=== PATIENT | female | born 1970 | race Caucasian/White ===

== ENCOUNTER 2018-03-22 20:41 | Emergency (ER) | payer MEDICARE, MEDICAID ==
[~2018-03-22] VITALS: Ht 170.2 cm; Wt 121.1 kg
[~2018-03-22 20:41] MED LIST: CARI350T PO; CETI10TA24 PO; COLE1TAB PO; DULO60CA7 PO; ESOM20CA PO; GABA800T5 PO; HYDR-3105 PO; PANT40TA3 PO; PROM25TA10 PO; TOPI100T8 PO
--- NOTE | 2018-03-22 21:10 | ER.PDOC ---
General Chief Complaint: Requesting Medical Care Stated Complaint: LOW BP TRAVEL OUT OF US: No Time seen by MD: 21:01 Source: patient Exam Limitations: no limitations History of Present Illness Initial Comments Pt with sensation of feeling unwell for the past two hours, pain in between scapular areas, weak, headache Timing/Duration: 1-3 hours Severity: moderate Associated Symptoms: headaches, malaise, weakness Allergies: Coded Allergies: Penicillins (Verified Allergy, Severe, unknown, 09/14/16) aspirin (Verified Allergy, Intermediate, 05/26/15) Home Meds Reported Medications Colestipol Hcl (COLESTID) 1 Gm Tablet, 1 GM PO DAILY, TABLET 05/19/15 Promethazine Hcl (PROMETHAZINE HCL) 25 Mg Tablet, 25 MG PO Q6HR PRN for nausea, TABLET 05/19/15 Carisoprodol (SOMA) 350 Mg Tablet, 1 TAB PO TID, #90 TAB 03/26/15 Esomeprazole Magnesium (NEXIUM) 20 Mg Capsule.dr, 1 CAP PO DAILY, #90 CAP 3 Refills 03/26/15 Pantoprazole Sodium (PROTONIX) 40 Mg Tablet.dr, 1 TAB PO DAILY, #30 TAB 5 Refills 03/26/15 Cetirizine Hcl (ZYRTEC) 10 Mg Tablet, 1 TAB PO DAILY, #30 TAB 2 Refills 03/26/15 Hydrocodone Bit/Acetaminophen (NORCO 10-325) 1 Each Tablet, 1 TAB PO Q6 PRN for PAIN, #60 TAB 03/26/15 Duloxetine Hcl (CYMBALTA) 60 Mg Capsule.dr, 1 CAP PO DAILY, #90 CAP 3 Refills 03/26/15 Topiramate (TOPIRAMATE) 100 Mg Tablet, 1 TAB PO BID, #60 TAB 1 Refill 03/26/15 Gabapentin (GABAPENTIN) 800 Mg Tablet, 300 MG PO TID, TABLET 03/26/15 Past Medical History Surgical History: cholecystectomy, hysterectomy Review of Systems Constitutional: see HPI EENTM: no symptoms reported Respiratory: no symptoms reported Cardiovascular: no symptoms reported Gastrointestinal: no symptoms reported Genitourinary: no symptoms reported Musculoskeletal: see HPI Skin: no symptoms reported Psychiatric/Neurological: no symptoms reported Hematologic/Lymphatic: no symptoms reported Immunological/Allergic: no symptoms reported Physical Exam General Appearance: No Apparent Distress, WD/WN, Anxious EENT: eyes nml inspection, nml ENT inspection, pharynx nml Neck: Non-Tender, Full Range of Motion, Supple, Normal Inspection Respiratory: chest non-tender, lungs clear, normal breath sounds, no respiratory distress CVS: reg rate & rhythm, no murmur, no gallop Gastrointestinal: Normal Bowel Sounds, No Organomegaly, No Pulsatile Mass, Non Tender Back: Normal Inspection, No CVA Tenderness, No Vertebral Tenderness Extremities: Normal Range of Motion, Non-Tender, Normal Inspection Neurologic/Psychiatric: ui ux developer II-XII NML as Tested, No Motor/Sensory Deficits, Alert, Normal Mood/Affect, Oriented x 3 Skin: Normal Color, Warm/Dry Lymphatic: No Adenopathy Results/Orders Results/Orders Laboratory Tests Test 03/22/18 00:00 03/22/18 21:25 03/22/18 23:30 Influenza Type A Antigen NEGATIVE (NEG) Influenza B Immunofluorescence NEGATIVE (NEG) White Blood Count 8.7 10^3/uL (4.5-11.0) Red Blood Count 4.41 10^6/uL (4.00-5.20) Hemoglobin 13.1 g/dL (12.0-15.0) Hematocrit 39.7 % (36.0-46.0) Mean Corpuscular Volume 90.0 fL (78-100) Mean Corpuscular Hemoglobin 29.7 pg (26-34) Mean Corpuscular Hemoglobin Concent 33.0 g/dL (33-37) Red Cell Distribution Width 14.2 % (11.5-14.5) Platelet Count 335 10^3/uL (150-400) Mean Platelet Volume 9.7 fL (7.8-11.0) Neutrophils (%) (Auto) 48.5 % (41.0-85.0) Lymphocytes (%) (Auto) 39.7 % (24.0-44.0) Monocytes (%) (Auto) 9.5 % (5.0-12.0) Neutrophils # (Auto) 4.2 10^3/uL (1.8-7.7) Lymphocytes # (Auto) 3.4 10^3/uL (1.0-4.8) Monocytes # (Auto) 0.8 10^3/uL (0.3-0.8) Absolute Immature Granulocyte (auto 0.02 10^3 u/L (0-2) Eosinophils % 1.8 % (0.0-5.0) Basophils % 0.3 % (0.0-0.2) Basophils # 0.0 10^3/uL (0.0-0.1) Eosinophil Count 0.2 10^3/uL (0.0-0.2) Prothrombin Time 9.9 SEC (9.8-11.9) Prothrombin Time INR (Non-Therap) 1.0 Activated Partial Thromboplast Time 26.5 SEC (24.67-30.72) Sodium Level 140 mmol/L (132-145) 141 mmol/L (132-145) Potassium Level 4.0 mmol/L (3.6-5.2) 4.0 mmol/L (3.6-5.2) Chloride Level 104.0 mmol/L (96-109) 106.0 mmol/L (96-109) Carbon Dioxide Level 23.4 mmol/L (20.0-32) 22.5 mmol/L (20.0-32) Anion Gap 16.6 16.5 Blood Urea Nitrogen 31 mg/dL (7-18) 32 mg/dL (7-18) Creatinine 1.57 mg/dL (0.59-1.40) 1.38 mg/dL (0.59-1.40) Estimated GFR () 42.5 (>/=60) 49.4 (>/=60) BUN/Creatinine Ratio 19.0 23.0 Glucose Level 107 mg/dL (70-110) 112 mg/dL (70-110) Calcium Level 9.1 mg/dL (8.4-10.5) 9.0 mg/dL (8.4-10.5) Total Bilirubin 0.3 mg/dL (0.2-1.0) Aspartate Amino Transf (AST/SGOT) 14 U/L (0-35) Alanine Aminotransferase (ALT/SGPT) 30 U/L (12-78) Alkaline Phosphatase 92 U/L (50-136) Total Creatine Kinase 64 U/L (26-192) Troponin I < 0.02 ng/mL (0.00-0.05) Pro-B-Type Natriuretic Peptide 177 pg/mL (0-125) Total Protein 6.9 g/dL (6.4-8.2) Albumin 3.5 g/dL (3.4-5.0) Globulin 3.4 Percent Immature Gran (Cell Imm) 0.20 % (0.00-0.50) Administered Medications Medications (Trade) Dose Ordered Sig/Kavitha Route PRN Reason Start Time Stop Time Status Last Admin Dose Admin Sodium Chloride 1,000 ml @ 1,200 mls/hr Q50M ONCE IV 03/22/18 22:00 03/22/18 22:49 DC 03/22/18 22:21 Progress Progress Creatinine down, hypotension corrected Departure Time of Disposition: 00:12 Disposition: 01 HOME, SELF-CARE Impression: Primary Impression: Elevated serum creatinine Additional Impressions: Headache Hypotension Condition: Stable Patient Instructions: General Headache Without Cause, Hypotension, [id number] Referrals: KIRSTEN KING MD (PCP) PRIMARY CARE PROVIDER Duration or Time Spent with Pa: FATOUMATA LANCASTER MD Mar 22, 2018 21:10
[2018-03-22 21:13] VITALS: BP 106/46
--- NOTE | 2018-03-22 21:34 | PCM.EKG ---
[facility] Test Date: 2018-03-22 Test Time: 21:30:14 Pat Name: MICHAEL GARCIA Department: [id number] Room: Gender: F Fashion Stylist: ZENIA : 1970 Requested By: FATOUMATA TREVINO Order Number: [id number] Reading MD: Fatoumata Trevino Measurements Intervals [place] Rate: 81 P: 24 [place]: 144 QRS: 29 QRSD: 96 T: 37 QT: 384 QTc: 446 Interpretive Statements Normal sinus rhythm Normal ECG No previous ECG available for comparison Electronically Signed On 04-05-2018 6:13:01 HOSPITAL NURSING ASSISTANT by Fatoumata Trevino Please click the below link to view image of tracing.
[2018-03-22 21:38] LABS: BASOPHIL % 0.3 % (0.0-0.2); EOSINOPHIL # 0.2 10^3/uL (0.0-0.2); EOSINOPHIL % 1.8 % (0.0-5.0); HEMOGLOBIN 13.1 g/dL (12.0-15.0); LYMPHOCYTES # 3.4 10^3/uL (1.0-4.8); LYMPHOCYTES % 39.7 % (24.0-44.0); MEAN CELL HGB 29.7 pg (26-34); MEAN PLATELET VOLUME 9.7 fL (7.8-11.0); MONOCYTES # 0.8 10^3/uL (0.3-0.8); MONOCYTES % 9.5 % (5.0-12.0); NEUTROPHIL # 4.2 10^3/uL (1.8-7.7); NEUTROPHILS % 48.5 % (41.0-85.0); RED CELL DISTRIBUTION WIDTH 14.2 % (11.5-14.5); WHITE BLOOD CELL 8.7 10^3/uL (4.5-11.0)
[2018-03-22] MEDS ORDERED: NS 1000ML 1,000 ML ONE (21:47)
[2018-03-22 21:53] LABS: ALANINE AMINOTRANSFERASE(ML) 30 U/L (12-78); ALKALINE PHOSPHATASE 92 U/L (50-136); ASPARTATE AMINO TRANSFERASE 14 U/L (0-35); CALCIUM 9.1 mg/dL (8.4-10.5); CARBON DIOXIDE 23.4 mmol/L (20.0-32); GLUCOSE 107 mg/dL (70-110)
[2018-03-22] MEDS ORDERED: NS 1000ML 1,000 ML IV ONE (22:00)
--- NOTE | 2018-03-22 22:15 | NUR ---
IV IV STARTED BY MARCIA DUARTE IN RT UPPER ARM.
[2018-03-22 22:20] VITALS: BP 106/47
--- NOTE | 2018-03-22 22:55 | DIREP ---
PROCEDURE:CHEST 1 VIEW COMPARISON:[facility], CR, XRAY CHEST 2 VWS, 01/13/2017, 03:33 PM. [facility], CR, XRAY CHEST 2 VWS, 09/30/2016, 04:05 PM. INDICATIONS:CP FINDINGS: LUNGS/PLEURA:No focal consolidation, pleural effusion, or pneumothorax. VASCULATURE:Normal. Unremarkable pulmonary vasculature. CARDIAC:Normal. No cardiac silhouette abnormality or cardiomegaly. MEDIASTINUM:Normal. No visible mass or adenopathy. BONES:Mild degenerative change without evidence of acute osseus abnormality. OTHER:Negative. CONCLUSION: 1. No acute cardiopulmonary process. Dictated by: Ozzy Monaco MD on 03/22/2018 at 10:52 PM
[2018-03-22 23:28] VITALS: BP 100/60
[2018-03-22 23:51] LABS: CARBON DIOXIDE 22.5 mmol/L (20.0-32)
--- NOTE | 2018-03-23 00:08 | DIREP ---
PROCEDURE: CT HEAD BRAIN W/O CONTRAST TECHNIQUE:Contiguous 5.0 mm transaxial sections were obtained from the vertex to skull base without the use of intravenous contrast. COMPARISON:None. INDICATIONS:headache, weak FINDINGS: VENTRICLES:Within normal limits. CEREBRUM:No acute intracranial hemorrhage or mass effect. Saez-white matter differentiation within normal limits. CEREBELLUM:Normal. BRAINSTEM:Normal. SKULL:Normal. SINUSES:Well pneumatized. OTHER:Negative. CONCLUSION: 1. No acute intracranial hemorrhage or mass effect. Dictated by: Ozzy Monaco MD on 03/23/2018 at 00:03 AM
[2018-03-23 00:13] VITALS: BP 104/49
[2018-03-23 00:46] VITALS: BP 104/49
== END 2018-03-23 00:30 | disposition home or self-care (01) ==
LOC: ER 20:41
DX: I95.9 Hypotension, unspecified (principal); R51 Headache; R79.89 Other specified abnormal findings of blood chemistry; Z79.899 Other long term (current) drug therapy; Z88.0 Allergy status to penicillin; Z88.6 Allergy status to analgesic agent; Z90.49 Acquired absence of other specified parts of digestive tract; Z90.710 Acquired absence of both cervix and uterus; Z79.01 Long term (current) use of anticoagulants
CPT/HCPCS: 36415; 70450; 71045; 80048; 80053; 82550; 83880; 84484; 85025; 85610; 85730; 87804 ×2; 93005; 96360; 99284; J7030

== ENCOUNTER 2021-06-13 17:07 | Emergency (ER) | payer MEDICARE, MEDICAID ==
[~2021-06-13] VITALS: Ht 170.2 cm; Wt 113.4 kg
[2021-06-13 17:07] VITALS: BP 123/58
[~2021-06-13 17:07] MED LIST changes: -CETI10TA24 PO; +CETI10TA77 PO; -DULO60CA7 PO; +DULO60CA8 PO
--- NOTE | 2021-06-13 17:07 | NUR ---
ARRIVAL PATIENT ARRIVED TO ED5 [facility]IA [facility] BY [facility], C/O BACK AND HEAD PAIN FROM A FALL TODAY, PATIENT STATES SHE WAS STEPPING FROM CARPET TO CONCRETE AND SLID CAUSING HER TO FALL, POSITIVE LOC, EMS INITIATED AN 18G O THE LEFT BREAST AND GAVE ZOFRAN 4MG AND TORADOL 15MG IV ANIMAL CARE ASSISTANT, ASSISTED PATIENT TO ED [facility], VITAL SIGNS OBTAINED AND DOCTOR CHATO NOTIFIED OF PATIENT'S ARRIVAL.
--- NOTE | 2021-06-13 17:37 | ER.PDOC ---
General Chief Complaint: Head Injury Stated Complaint: FALL Time seen by MD: 17:36 Source: patient Exam Limitations: no limitations History of Present Illness Initial Comments Head and neck pain status post fall. Patient slipped at a day care. She denies passing out. Occurred: just prior to arrival Severity: moderate Injuries/Pain Location: head, neck Context: Slipped Loss of Consciousness: No Loss of Consciousness Associated Symptoms: headache, neck pain Allergies: Coded Allergies: Penicillins (Verified Allergy, Severe, unknown, 09/14/16) aspirin (Verified Allergy, Intermediate, 05/26/15) MEDS Reported Medications Colestipol Hcl (COLESTID) 1 Gm Tablet, 1 GM PO DAILY, TABLET 05/19/15 Promethazine Hcl (PROMETHAZINE HCL) 25 Mg Tablet, 25 MG PO Q6HR PRN for nausea, TABLET 05/19/15 Carisoprodol (SOMA) 350 Mg Tablet, 1 TAB PO TID, #90 TAB 03/26/15 Esomeprazole Magnesium (NEXIUM) 20 Mg Capsule.dr, 1 CAP PO DAILY, #90 CAP 3 Refills 03/26/15 Pantoprazole Sodium (PROTONIX) 40 Mg Tablet.dr, 1 TAB PO DAILY, #30 TAB 5 Refills 03/26/15 Cetirizine Hcl (ZYRTEC) 10 Mg Tablet, 1 TAB PO DAILY, #30 TAB 2 Refills 03/26/15 Hydrocodone Bit/Acetaminophen (NORCO 10-325) 1 Each Tablet, 1 TAB PO Q6 PRN for PAIN, #60 TAB 03/26/15 Duloxetine Hcl (CYMBALTA) 60 Mg Capsule.dr, 1 CAP PO DAILY, #90 CAP 3 Refills 03/26/15 Topiramate (TOPIRAMATE) 100 Mg Tablet, 1 TAB PO BID, #60 TAB 1 Refill 03/26/15 Gabapentin (GABAPENTIN) 800 Mg Tablet, 300 MG PO TID, TABLET 03/26/15 Past Medical History Medical History: GERD, other Surgical History: hysterectomy, knee, tubal, other Family History Significant Family History: no pertinent family hx Social History Smoking: non-smoker Alcohol Use: none Drug Use: none Review of Systems Constitutional: no symptoms reported Ears, Nose, Mouth, Throat: no symptoms reported Respiratory: no symptoms reported Cardiovascular: no symptoms reported Gastrointestinal: no symptoms reported Musculoskeletal: see HPI All Other Systems: Reviewed and Negative Physical Exam General Appearance: No Apparent Distress, WD/WN Head: No Evidence of Injury Eyes: bilateral eye normal inspection Ears, Nose, Mouth, Throat: Hearing Grossly Normal, No Evidence of ENT Injury, No Dental Injury Neck: Tenderness Cardiovascular/Respiratory: Regular Rate, Rhythm, No M/R/G, Normal Peripheral Pulses, No JVD, Normal Breath Sounds, No Respiratory Distress Gastrointestinal: Normal Bowel Sounds, No Organomegaly, No Pulsatile Mass, Non Tender, Soft Back: Normal Inspection, No CVA Tenderness, No Vertebral Tenderness Extremities: No Evidence of Injury, Normal Range of Motion, Non-Tender, No Pedal Edema Neurologic/Psychiatric: nurse sane II-XII NML as Tested, No Motor/Sensory Deficits, Alert, Normal Mood/Affect, Oriented x 3 Skin: Normal Color, Warm/Dry Andreea Coma Score Best Eye Response: (4) Open Spontaneously Best Verbal Response: (5) Oriented Best Motor Response: (6) Obeys Commands Results/Orders Results/Orders Orders - JENNIFER REIS MD Ct Head Wo Contrast (06/13/21 17:35) Ct Cervical Spine (06/13/21 17:35) Vital Signs Date Time Temp Pulse Resp B/P (MAP) Pulse Ox O2 Delivery O2 Flow Rate FiO2 06/13/21 18:10 98.0 76 18 112/65 (81) 92 Room Air* 0 21 06/13/21 17:07 98.0 88 18 92 06/13/21 17:07 98.0 88 18 06/13/21 17:07 98.0 88 18 123/58 (79) 92 Room Air* 0 21 06/13/21 17:[address] head is normal and CT C-spine shows no acute bony abnormality. She received Toradol in the ambulance and she is feeling better. ER DEPART Departure Time of Disposition: 18:34 Disposition: 01 HOME / SELF CARE / HOMELESS Impression: Primary Impression: Head injury, acute Additional Impression: Contusion of neck Condition: Improved Patient Instructions: Head Injury, Adult, [id number] Referrals: KIRSTEN KING MD (PCP) PRIMARY CARE PROVIDER Additional Instructions: Continue with pain medicines at home Follow-up with your PCP next week Return to ED if worsening or concerns Duration or Time Spent with Pa: 10 min Problem Qualifiers Primary Impression: Head injury, acute Encounter type: initial encounter Qualified Codes: S09.90XA - Unspecified injury of head, initial encounter Additional Impression: Contusion of neck Encounter type: initial encounter Qualified Codes: S10.93XA - Contusion of unspecified part of neck, initial encounter JENNIFER REIS MD Jun 13, 2021 17:37
[2021-06-13 18:10] VITALS: BP 112/65
--- NOTE | 2021-06-13 18:12 | DIREP ---
PROCEDURE: CT SPINE CERVICAL W/O COMPARISON:None. INDICATIONS:pain S/P fall FINDINGS: ALIGNMENT:Normal. VERTEBRAE:Normal. No fracture. PARASPINAL AREA:Normal. OTHER:No additional findings. CERVICAL DISC LEVELS C2-C3:Mild bilateral facet arthrosis. C3-C4:Mild left facet arthrosis. C4-C5:Normal. C5-C6:Normal. C6-C7:Normal. C7-T1:Moderate left facet arthrosis.. CONCLUSION:No acute bony injury to the C-spine. Mild degenerative changes. Dictated by: Fernando Jones M.D. on 06/13/2021 at 06:07 PM
--- NOTE | 2021-06-13 18:12 | DIREP ---
PROCEDURE:CT HEAD OR BRAIN W/O CONTRAST COMPARISON:[facility], CT, CT HEAD BRAIN W/O CONTRAST, 03/22/2018, 11:17 PM. INDICATIONS:Pain S/P fall TECHNIQUE:CT images were created without intravenous contrast. FINDINGS: VENTRICLES: The ventricles are normal in size and configuration. CEREBRUM: Normal cerebral morphology with appropriate pena white matter differentiation. CEREBELLUM: Negative. BRAINSTEM: Negative. BASAL CISTERNS: Negative. SKULL: Normal. No fractures. No lytic or blastic lesion of bone. SINUSES: Normal. OTHER: No acute intracranial hemorrhage, large territorial infarct, CT evidence of acute infarct, abnormal extra-axial fluid collection, or intracranial mass effect. CONCLUSION: Normal noncontrast CT scan of the brain. Dictated by: Fernando Jones M.D. on 06/13/2021 at 06:10 PM
[2021-06-13] MEDS ORDERED: ZOFRAN ONE (18:46)
[2021-06-13 18:53] VITALS: BP 120/58
[2021-06-13] MEDS ORDERED: ZOFRAN ODT SL PRN (19:00)
[2021-06-13] MEDS: ZOFRAN IM PRN (19:03)
== END 2021-06-13 18:59 | disposition home or self-care (01) ==
LOC: ER 17:07 → EDBD 17:07 → ER 18:59
DX: S10.93XA Contusion of unspecified part of neck, initial encounter (principal); S09.90XA Unspecified injury of head, initial encounter; K21.9 Gastro-esophageal reflux disease without esophagitis; W19.XXXA Unspecified fall, initial encounter; Y93.89 Activity, other specified; Y92.89 Other specified places as the place of occurrence of the external cause; Y99.8 Other external cause status; Z90.710 Acquired absence of both cervix and uterus; Z88.6 Allergy status to analgesic agent; Z88.0 Allergy status to penicillin
CPT/HCPCS: 70450; 72125; 96372; 99284; J2405